=== PATIENT | female | born 1940 | race Caucasian/White ===

== ENCOUNTER 2017-08-10 06:04 | Day surgery (SDC) | payer OTHER ==
[~2017-08-10] VITALS: Ht 172.7 cm; Wt 102.0 kg
[2017-08-10 07:05] VITALS: BP 152/71
[2017-08-10 12:37] VITALS: BP 148/98
== END 2017-08-10 11:55 | disposition home or self-care (01) ==
LOC: DS 06:04 → OR 08:30 → DS 08:30
PROVIDERS: Ophthalmology
PROC: 08RK3JZ Replacement of Left Lens with Synthetic Substitute, Percutaneous Approach (ICD-10-PCS; principal; 2017-08-10 08:30)
DX: H25.012 Cortical age-related cataract, left eye (principal); I10 Essential (primary) hypertension; K21.9 Gastro-esophageal reflux disease without esophagitis; I48.91 Unspecified atrial fibrillation; M19.90 Unspecified osteoarthritis, unspecified site; Z68.34 Body mass index [BMI] 34.0-34.9, adult
CPT/HCPCS: C1780; J2001; J2250; J2405; J2704; J2765; J3010; J7040

== ENCOUNTER → 2017-09-12 | Outpatient (CLI) | payer OTHER | END | disposition home or self-care (01) | LOC: MA 12:27 | PROC: BH02ZZZ Plain Radiography of Bilateral Breasts (ICD-10-PCS; principal; 2017-09-12) | DX: C54.1 Malignant neoplasm of endometrium (principal); N63.10 Unspecified lump in the right breast, unspecified quadrant | CPT/HCPCS: G0204 ==